=== PATIENT | female | born 1990 ===

== ENCOUNTER 2024-08-13 05:08 | Emergency (ER) | payer BC ==
[2024-08-13 05:20] VITALS: BP 133/82; PULSE 98
== END 2024-08-13 05:51 | disposition home or self-care (01) ==
LOC: MW.ED 05:08
DX: R09.81 Nasal congestion (principal); E03.9 Hypothyroidism, unspecified; Z79.890 Hormone replacement therapy; Z79.899 Other long term (current) drug therapy
CPT/HCPCS: 99282; 99283